=== PATIENT | female | born 1970 | race Caucasian/White ===

== ENCOUNTER 2019-08-06 11:42 | Emergency (ER) | payer SELFPAY ==
[2019-08-06] MEDS ORDERED: LORazepam 2 MG/ML SDV IVPUSH ONE (12:13)
[2019-08-06] MEDS ORDERED: Sodium Chloride 0.9% 10 ML Syringe FLUSH PRN (12:13)
[2019-08-06] MEDS ORDERED: Ondansetron 4 MG/2 ML SDV IVPUSH ONE (12:13)
[2019-08-06] MEDS ORDERED: HYDROmorphone 0.5 MG/0.5 ML Syringe IVPUSH ONE (12:13)
[2019-08-06] MEDS ORDERED: Sodium Chloride 0.9% 1,000 ML IV SCH (12:15)
--- NOTE | 2019-08-06 13:53 | EDM.PDOC ---
ED HPI GENERAL MEDICAL PROBLEM - General Chief Complaint: Abdominal Pain Stated Complaint: [facility] Time Seen by Provider: 08/06/19 11:56 Source of Information: Reports: Patient, RN Notes Reviewed - History of Present Illness INITIAL COMMENTS - FREE TEXT/NARRATIVE: 49 year old female has been brought to our ED by ambulance with severe abd pain that started several hours ago. She has had nausea, no vomiting. The pain is generalized with superimposed cramping. She has felt constipated with last nl BM about 3 days ago and just a very small BM "with a small amt of blood" this morning. She did eat a normal breakfast about 5 hrs ago and felt fine at that time. Hx of C section but no other abd surgeries. Upper Abdomen Pain Score (Numeric/FACES): 10 - Related Data Allergies Allergy/AdvReac Type Severity Reaction Status Date / Time morphine Allergy Rash Verified 08/06/19 12:01 Home Meds: Home Meds . [No Known Home Meds] 08/06/19 [History] Past Medical History Cardiovascular History: Reports: Hypertension Gastrointestinal History: Reports: Other (See Below) Other Gastrointestinal History: colitis Neurological History: Reports: Migraines Psychiatric History: Reports: Anxiety Social & Family History - Tobacco Use Smoking Status *Q: Current Every Day Smoker Years of Tobacco use: 15 Packs/Tins Daily: 0.5 - Caffeine Use Caffeine Use: Reports: Soda - Recreational Drug Use Recreational Drug Use: No ED ROS GENERAL - Review of Systems Review Of Systems: See Below Constitutional: Denies: Fever, Chills HEENT: Reports: No Symptoms Cardiovascular: Denies: Chest Pain GI/Abdominal: Reports: Abdominal Pain, Constipation, Nausea. Denies: Diarrhea, Vomiting Musculoskeletal: Reports: No Symptoms Skin: Reports: No Symptoms Neurological: Reports: No Symptoms ED EXAM, GI/ABD - Physical Exam Exam: See Below General Appearance: Alert, Moderate Distress Throat/Mouth: Normal Inspection Respiratory/Chest: No Respiratory Distress, Lungs Clear, Normal Breath Sounds Cardiovascular: Tachycardia GI/Abdominal Exam: Tender (moderate diffuse tenderness). No: Guarding, Rebound Extremities: Normal Inspection, Normal Range of Motion Neurological: Alert, Oriented, No Motor/Sensory Deficits Skin Exam: Warm, Dry, Normal Color Course - Vital Signs Last Recorded V/S: Last Vital Signs Temp 99.8 F 08/06/19 14:15 Pulse 124 H 08/06/19 14:15 Resp 16 12/03/19 14:15 BP 122/78 08/06/19 14:15 Pulse Ox 95 08/06/19 14:15 - Orders/Labs/Meds Orders: Active Orders 24 hr Category Date Time Status Peripheral IV Care [RC] . DIRECTED Care 08/06/19 12:14 Active Peripheral IV Insertion Adult [OM.PC] Stat Oth 08/06/19 12:13 Ordered Labs: Laboratory Tests 08/06/19 08/06/19 08/06/19 Range/Units 13:30 13:30 13:30 WBC 13.71 H (3.98-10.04) K/mm3 RBC 4.83 (3.98-5.22) M/mm3 Hgb 14.4 (11.2-15.7) gm/dl Hct 43.1 (34.1-44.9) % MCV 89.2 (79.4-94.8) fl MCH 29.8 (25.6-32.2) pg MCHC 33.4 (32.2-35.5) g/dl RDW Std Deviation 45.2 (36.4-46.3) fL Plt Count 402 H (182-369) K/mm3 MPV 9.3 L (9.4-12.3) fl Neut % (Auto) 82.1 H (34.0-71.1) % Lymph % (Auto) 12.6 L (19.3-51.7) % Tift % (Auto) 4.3 L (4.7-12.5) % Eos % (Auto) 0.4 L (0.7-5.8) Baso % (Auto) 0.2 (0.1-1.2) % Neut # (Auto) 11.26 H (1.56-6.13) K/mm3 Lymph # (Auto) 1.73 (1.18-3.74) K/mm3 Tift # (Auto) 0.59 H (0.24-0.36) K/mm3 Eos # (Auto) 0.05 (0.04-0.36) K/mm3 Baso # (Auto) 0.03 (0.01-0.08) K/mm3 Manual Slide Review Normal smear Sodium 140 (136-145) mEq/L Potassium 3.9 (3.5-5.1) mEq/L Chloride 107 (98-107) mEq/L Carbon Dioxide 23 (21-32) mEq/L Anion Gap 13.9 (5-15) BUN 14 (7-18) mg/dL Creatinine 0.7 (0.55-1.02) mg/dL Est Cr Clr Drug Dosing TNP Estimated GFR (MDRD) > 60 (>60) mL/min BUN/Creatinine Ratio 20.0 H (14-18) Glucose 142 H (74-106) mg/dL Calcium 8.5 (8.5-10.1) mg/dL Total Bilirubin 0.3 (0.2-1.0) mg/dL AST 18 (15-37) U/L ALT 39 (14-59) U/L Alkaline Phosphatase 115 (46-116) U/L C-Reactive Protein 0.5 (<1.0) mg/dL Total Protein 7.0 (6.4-8.2) g/dl Albumin 3.3 L (3.4-5.0) g/dl Globulin 3.7 gm/dL Albumin/Globulin Ratio 0.9 L (1-2) Lipase 73 (73-393) U/L Meds: Medications Discontinued Medications Generic Name Dose Route Start Last Admin Trade Name Freq PRN Reason Stop Dose Admin Hydromorphone HCl 0.5 mg 08/06/19 12:13 08/06/19 12:52 Dilaudid IVPUSH 08/06/19 12:14 0.5 mg ONETIME ONE Administration Sodium Chloride 1,000 mls @ 999 mls/hr 08/06/19 12:15 08/06/19 12:56 Normal Saline IV 999 mls/hr ONETIME CLINT Administration Lorazepam 0.5 mg 08/06/19 12:13 08/06/19 12:54 Ativan IVPUSH 08/06/19 12:14 0.5 mg ONETIME ONE Administration Ondansetron HCl 4 mg 08/06/19 12:13 08/06/19 12:50 Zofran IVPUSH 08/06/19 12:14 4 mg ONETIME ONE Administration Sodium Chloride 10 ml 08/06/19 12:13 08/06/19 12:56 Saline Flush FLUSH 10 ml ASDIRECTED PRN Administration Keep Vein Open Departure - Departure Time of Disposition: 13:51 Disposition: Home, Self-Care 01 Condition: Fair Clinical Impression: Abdominal pain - Discharge Information Instructions: Abdominal Pain, Adult, [id number] Referrals: Samantha Ford, [employer] [Primary Care Provider] - Forms: ED Department Discharge Additional Instructions: Your WBC is elevated at 13,700. Your other labs are still pending at this time. You or Samantha can call for results at any time at [phone]. See Samantha in [place] as planned. I would suggest not eating, clear liquids only for now. Return to ED as needed. - My Orders Last 24 Hours: My Active Orders 08/06/19 12:13 Peripheral IV Insertion Adult [OM.PC] Stat 08/06/19 12:14 Peripheral IV Care [RC] . DIRECTED - Assessment/Plan Last 24 Hours: My Active Orders 08/06/19 12:13 Peripheral IV Insertion Adult [OM.PC] Stat 08/06/19 12:14 Peripheral IV Care [RC] . DIRECTED
== END 2019-08-06 14:15 | disposition home or self-care (01) ==
LOC: JD.ED 11:42
DX: R10.84 Generalized abdominal pain (principal); I10 Essential (primary) hypertension; F17.210 Nicotine dependence, cigarettes, uncomplicated; Z88.6 Allergy status to analgesic agent
CPT/HCPCS: 36415; 80053; 83690; 85025; 86140; 96361; 96374; 96375; 99284; 99284-25; J1170; J2060; J2405; J7030